=== PATIENT | male | born 2000 | race Caucasian/White ===

== ENCOUNTER 2022-12-05 21:34 | Emergency (ER) | payer BC, SELFPAY ==
[2022-12-05 21:43] VITALS: BP 114/84; PULSE 77; RESP 16; TEMP 36.4; O2SAT 98; BMI 31.3
--- NOTE | 2022-12-05 21:59 | ED_ITS ---
HPI - Extremity Injury (Lower) General Time Seen by Provider: 21:59 Date Seen: 12/05/22 Chief Complaint: Extremity Pain/Injury, Lower Stated Complaint: L Knee injury Time Seen by Provider: 12/05/22 21:59 Source: patient and RN notes reviewed Mode of arrival: ambulatory Limitations: no limitations History of Present Illness HPI Narrative: Patient is a 22-year-old male coming in with complaint of left knee pain. He injured it in hockey. Thinks he had it hit by another player bending it, thought he heard a pop. He thinks that maybe the knee cap was out and he put it back in. He has pain medially along the knee. He states he has had meniscus injury in this knee before. They have crutches in the car. It hurts to been, hurts to walk. MD complaint: knee injury Related Data Home Medications Medication Instructions Recorded Confirmed No Known Home Medications 12/05/22 12/05/22 Allergies Allergy/AdvReac Type Severity Reaction Status Date / Time No Known Drug Allergies Allergy Verified 12/05/22 21:43 Review of Systems Narrative: As per HPI. PFSH PFSH Social History Smoking Status: Never smoker Do you use any of these nicotine containing products: None Non-prescribed substance use: denies use Exam Const: Vital Signs, click to edit/add: Vital Signs - 24 hr 12/05/22 21:43 Temperature 97.6 F Pulse Rate [Pulse Oximeter] 77 Respiratory Rate 16 Blood Pressure [Ri ght Upper Arm] 114/84 Pulse Oximetry 98 Oxygen Delivery Me thod Room Air 22-year-old male is seen in exam room 6, has ice on his left medial knee. Patella seems to be intact, tracks normally. I am able to flex his knee to about 90?, I states there is a little discomfort with that. He has pain medially and seems to be in the distribution of the medial collateral ligament. I am not able to really overcome his need for testing of ACL or PCL but there is no knee joint effusion noted. He is not tender laterally, no popliteal fossa tenderness or masses. Documenting provider has reviewed patient's vital signs: yes Course Course Hospital Course: We have discussed obtaining baseline films. I am unable to MRI his knee in the ED at this time nor is it indicated emergently. We have discussed that he is painful in the distribution of the medial collateral ligament, there sometimes can be associated meniscal injuries with this pattern of injury. Without a significant joint effusion, am less concerned about any ACL or PCL injury. He may ultimately need an MRI but he will need to follow up with Orthopedics to have them ascertain if this will be indicated. We will obtain his x-ray, place him in a knee immobilizer. He does indicate that the patella may have been out of alignment, could possibly have been and associated patellar dislocation that is relocated at this time. They have crutches for weight-bearing with the knee immobilizer on. Reevaluation(s) Time of Reevaluation #1: 23:06 Reevaluation #1: Patient has is knee immobilizer on, unfortunately radiology still has not read his films. I reviewed with him that I do not see any acute pathology and would contact him if there was anything differing from my initial reading. He was comfortable with that plan, did not want to wait any longer. He will still need to follow up with Orthopedics. Time of Reevaluation #2: 23:51 Reevaluation #2: Did call patient back and let him know that the radiologist was questioning a cortical irregularity along the medial tibial plateau. Pain seem to be more superficial on his exam but did review with him that I need him to be nonweightbearing, keep the knee immobilizer on an use the crutches for this purpose. He will need to follow up with Orthopedics as soon as he can get in, they can decide if they are going to order CT imaging or MRI. The prudent thing his that he does not bear weight on this leg in tell it has been further evaluated by Orthopedics. He demonstrates understanding. Vital Signs Vital signs: Initial Vital Signs Temperature 97.6 F 12/05/22 21:43 Temperature Source Temporal Artery Scan 12/05/22 21:43 Pulse Rate 77 12/05/22 21:43 Respiratory Rate 16 12/05/22 21:43 Blood Pressure 114/84 12/05/22 21:43 Blood Pressure Mean 94 12/05/22 21:43 Pulse Oximetry 98 12/05/22 21:43 Oxygen Delivery Method Room Air 12/05/22 21:43 Vital Signs Temperature 97.6 F 12/05/22 21:43 Pulse Rate 77 12/05/22 21:43 Respiratory Rate 16 12/05/22 21:43 Blood Pressure 114/84 12/05/22 21:43 Pulse Oximetry 98 12/05/22 21:43 Oxygen Delivery Method Room Air 12/05/22 21:43 Temperature 97.6 F 12/05/22 21:43 Pulse Rate 77 12/05/22 21:43 Respiratory Rate 16 12/05/22 21:43 Blood Pressure 114/84 12/05/22 21:43 Pulse Oximetry 98 12/05/22 21:43 Oxygen Delivery Method Room Air 12/05/22 21:43 MDM - Extremity Injury (Lower) Imaging Data XR left knee: Attestation: I have reviewed the pertinent imaging results. My impression: No acute pathology on my preliminary review. Radiologist's impression: Patient: PARISH SAN Facility:?[facility] Patient ID:?[id number] Site Patient ID:?[id number]. Site :?[id number] Study:?XRay Knee Left 2 views-12/05/2022 10:24:21 PM Ordering Physician:Damaris Jo Final Report: Indication: Injury, pain medially. Technique: Two views of the left knee, AP, lateral. Comparison: None Findings/Impression: Slight cortical irregularity at the medial tibial plateau adjacent to the tibial spine, may be projectional. Consider further evaluation with CT. Small knee joint effusion is present. Dictated by Kita Ibrahim MD @ 12/05/2022 11:38:32 PM (Electronic Signature) Patient was notified of the radiologist's over reading as planned if there was discrepancy on my initial review. Discharge Plan Discharge Clinical Impression: Acute pain of left knee Patient Disposition: Home, Self-Care Condition: Stable Instructions: Knee Pain (ED) Additional Instructions: Use knee immobilizer for stability and crutches for pain-free weight-bearing. Ice, elevate this extremity as much as you are able to for the next few days. Tylenol and ibuprofen as needed for pain control, follow bottle directions for dosing. Contact the orthopedic office at [phone] to get scheduled for follow-up appointment and further evaluation. Activity Level: Wear Brace and Use Crutches Prescriptions: No Action No Known Home Medications Stand Alone Forms: [employer] Info Instructions
--- NOTE | 2022-12-05 22:03 | CRLHL7_ITS ---
For Patients: As a result of the Century Cures Act, medical imaging exams and procedure reports are released immediately into your electronic medical record. You may view this report before your referring provider. If you have questions, please contact your health care provider. Indication: Injury, pain medially. Technique: Two views of the left knee, AP, lateral. Comparison: None Findings/Impression: Slight cortical irregularity at the medial tibial plateau adjacent to the tibial spine, may be projectional. Consider further evaluation with CT. Small knee joint effusion is present. Dictated by Kita Ibrahim MD @ 12/05/2022 11:38:32 PM (Electronically Signed)
== END 2022-12-05 23:11 | disposition home or self-care (01) ==
PROVIDERS: Emergency Provider Family Medicine; PCP Physician Assistant Medical
DX: M25.562 Pain in left knee (principal); Y93.22 Activity, ice hockey
CPT/HCPCS: 73560; 99283

== ENCOUNTER 2023-08-08 17:02 | Day surgery (SDC) | payer BC, SELFPAY ==
[2023-08-08 17:09] VITALS: BP 160/84; PULSE 60; RESP 16; TEMP 37.8; O2SAT 97; BMI 30.4
--- NOTE | 2023-08-08 17:24 | CT_ITS ---
Patient: PARISH SAN Facility:?[facility] Patient ID:?[id number] Site Patient ID:?[id number]. Site :?[id number] Study:?CT-Abdomen/Pelvis W/98CC [id number]/2/2024 6:07:16 PM Ordering Physician:NATE Final Report: Indication: Vomiting, right lower quadrant pain Technique: CT abdomen and pelvis with intravenous contrast, 98 cc of Isovue 370. Please note that all CT scans at this facility use dose modulation, iterative reconstruction, and/or weight-based dosing when appropriate to reduce radiation dose to as low as reasonably achievable. Comparison: None. Findings: Lower chest is clear. The liver, gallbladder, spleen, adrenal glands, pancreas and kidneys are normal. Urinary bladder is grossly unremarkable. There are no pelvic cysts or masses. The appendix is dilated to 12 millimeters with associated adjacent inflammatory stranding and no free fluid or free air. Remainder of the hollow viscera is unremarkable. The abdominal aorta and mesenteric arteries are patent and normal in caliber. There is no lymphadenopathy. Bones and soft tissues are unremarkable. Impression: Acute uncomplicated appendicitis. Discussed with Dr. Sin at time of dictation. Please note that all CT scans at this facility use dose modulation, iterative reconstruction, and/or weight-based dosing when appropriate to reduce radiation dose to as low as reasonably achievable. Dictated by José Ann MD @ 08/08/2023 6:18:35 PM Signed by:?José Ann MD @08/08/2023 6:18:35 PM (Electronic Signature)
--- NOTE | 2023-08-08 17:26 | ED_ITS ---
HPI - General Adult General Date Seen: 08/08/23 Chief complaint: Abdominal Pain Stated complaint: Abdominal pain Time Seen by Provider: 08/08/23 17:18 Source: patient Mode of arrival: ambulatory Limitations: no limitations History of Present Illness HPI narrative: Patient is a 22-year-old male here with Mom for evaluation of abdominal pain and vomiting. He notes onset of abdominal pain which he says was diffuse last evening. He has had about 10 or 12 episodes of vomiting. He has had 1 episode of nonbloody diarrhea. Continues to have diffuse abdominal pain which he does not feel has changed significantly since last night. He has a low-grade fever here, has not noted fevers at home. No ill contacts. No urinary symptoms. He has a history of an umbilical hernia repair as a baby, no other surgeries. General health is good, no medical allergies. He vapes nicotine, denies drug or alcohol use. He says over the past couple of hours he has been able to keep some fluids down, had some applesauce about 30 minutes prior to coming in. Related Data Home Medications Medication Instructions Recorded Confirmed No Known Home Medications 12/05/22 08/08/23 Allergies Allergy/AdvReac Type Severity Reaction Status Date / Time mold Allergy Unknown Verified 08/08/23 18:11 Review of Systems Status of ROS: Reports: 10 or more systems reviewed and unremarkable except as noted in History and below [facility] Social History Smoking Status: Never smoker Do you use any of these nicotine containing products: None Non-prescribed substance use: denies use Exam Narrative: Exam Narrative: Vital signs as noted above. In general, an alert, well-appearing patient. Head: Normocephalic, atraumatic. Eyes: Pupils are equal reactive. Extraocular movements are full. Conjunctivae are normal. ENT: Mucous membranes are moist. Neck: Supple without lymphadenopathy. Heart: Regular rate and rhythm. No murmur or rub. Lungs: Clear bilaterally. No increased work of breathing, crackles or wheezes. Abdomen: Soft and nondistended. Focal tenderness in the right lower quadrant, no rebound guarding or rigidity. Remainder the abdomen is nontender. Bowel sounds are present. Extremities: Well perfused. No edema. No calf tenderness. Pulses intact. Neurologic: Patient is alert and oriented to person and place. Speech is fluent. Face is symmetric. Moves all extremities equally. Affect: Normal. Skin: Warm and dry. Well perfused. Const: Vital Signs, click to edit/add: Vital Signs - 24 hr 08/08/23 17:09 Temperature 100.1 F H Pulse Rate [Pulse Oximeter] 60 Respiratory Rate 16 Blood Pressure [Ri ght Upper Arm] 160/84 H Pulse Oximetry 97 Oxygen Delivery Me thod Room Air Documenting provider has reviewed patient's vital signs: yes Course Course ED Course: Patient presents with abdominal pain vomiting, did have onset of abdominal pain prior to vomiting, single episode of diarrhea. Abdominal pain is described as diffuse but tenderness is located in the right lower quadrant. I do think it would be reasonable to rule out appendicitis, he does not have significant right upper quadrant tenderness, but will check a lipase, LFTs in case of cholecystitis, biliary colic, pancreatitis. Symptoms may be vi ral/gastroenteritis. We placed an IV, hydrate, CT abdomen with contrast, labs, UA. Labs notable for an elevated white blood cell count of 16. Hemoglobin normal, platelets [id number]. Metabolic panel unremarkable. Blood sugar 118. Total bilirubin is 2, direct bilirubin is 0.2. CRP elevated at 2.1, lipase 42. Urinalysis is negative. Viral swab is negative. CT scan by my review shows a dilated appendix about 13 mm with some periappendiceal stranding. Final radiology read is of acute uncomplicated appendicitis. Patient is feeling improved. I have discussed all of this with him. Surgery w ill need to be delayed because of NPO status until tomorrow morning, Dr. Haynes plans to admit him and plans for surgery at 6:00 a.m.. Patient actually became kind of agitated with the suggestion of having to stay in hospital, his mom is with him, he was adamant that he is leaving now and not staying in the hospital. I asked him if this was related to nicotine, offered a nicotine patch. He refused a nicotine patch, asked if he could go outside and vapes I am allowing him to do that in anticipation of staying in hospital overnight. Vital Signs Vital signs: Initial Vital Signs Temperature 100.1 F H 08/08/23 17:09 Temperature Source Temporal Artery Scan 08/08/23 17:09 Pulse Rate 60 08/08/23 17:09 Respiratory Rate 16 08/08/23 17:09 Blood Pressure 160/84 H 08/08/23 17:09 Blood Pressure Mean 109 H 08/08/23 17:09 Blood Pressure Position Sitting 08/08/23 17:09 Pulse Oximetry 97 08/08/23 17:09 Oxygen Delivery Method Room Air 08/08/23 17:09 Vital Signs Temperature 100.1 F H 08/08/23 17:09 Pulse Rate 60 08/08/23 17:09 Respiratory Rate 16 08/08/23 17:09 Blood Pressure 160/84 H 08/08/23 17:09 Pulse Oximetry 97 08/08/23 17:09 Oxygen Delivery Method Room Air 08/08/23 17:09 Temperature 100.1 F H 08/08/23 17:09 Pulse Rate 60 08/08/23 17:09 Respiratory Rate 16 08/08/23 17:09 Blood Pressure 160/84 H 08/08/23 17:09 Pulse Oximetry 97 08/08/23 17:09 Oxygen Delivery Method Room Air 08/08/23 17:09 Medications Administered Medications: Discontinued Medications Generic Name Dose Route Start Last Admin Trade Name Freq PRN Reason Stop Dose Admin Sodium Chloride 1,000 mls @ 1,000 mls/hr 08/08/23 17:30 08/08/23 18:08 0.9 % Sodium Chloride 1000 Ml IV 08/08/23 18:29 1,000 mls/hr .Q1H TOMAS Administration Ketorolac Tromethamine 15 mg 08/08/23 17:24 08/08/23 18:08 Ketorolac 15 Mg/Ml Inj IVP 08/08/23 17:25 15 mg ONCE ONE Administration Ondansetron HCl 4 mg 08/08/23 17:24 08/08/23 18:09 Ondansetron 2 Mg/Ml Inj IVP 08/08/23 17:25 4 mg ONCE ONE Administration Medical Decision Making Lab Data Labs: Lab Results 08/08/23 08/08/23 08/08/23 Range/Units 17:24 17:25 17:40 WBC 16.06 H (4.50-11.00) K/uL RBC 4.82 (4.30-5.90) m/uL Hgb 15.4 (13.5-17.5) gm/dL Hct 42.3 (37.0-53.0) % MCV 88 (80-100) fL MCH 32 (26-34) pg MCHC 36 (32-36) gm/dL RDW Coeff of Abhishek 11.4 L (11.5-15.5) % Plt Count 252 (140-440) K/uL Neut % (Auto) 84.6 H (42.0-72.0) % Lymph % (Auto) 6.3 L (20-44) % [place] % (Auto) 8.0 (0.0-11.0) % Eos % (Auto) 0.0 (0.0-7.0) % Baso % (Auto) 0.1 (0.0-3.0) % Neut # (Auto) 13.60 H (1.7-7.0) K/uL Lymph # (Auto) 1.00 (0.90-2.90) K/uL [place] # (Auto) 1.30 H (0.00-0.90) K/UL Eos # (Auto) 0.00 (0.00-0.50) K/uL Baso # (Auto) 0.00 (0.00-0.30) K/uL Abs Immat Gran (auto) 0.20 (0.00-0.30) K/uL Imm/Tot Granulo (auto) 1.0 % Sodium 136 (135-149) mmol/L Potassium 4.0 (3.6-5.1) mmol/L Chloride 101 (96-114) mmol/L Carbon Dioxide 23 (20-32) mmol/L Anion Gap 12 (7-15) mEq/L BUN 11 (5-24) mg/dL Creatinine 0.9 (0.5-1.5) mg/dL Estimated Creat Clear 124.56 Estimated GFR 124 ml/min Glucose 118 H (60-115) mg/dL Calcium 9.7 (8.4-10.6) mg/dL Total Bilirubin 2.0 H (0.1-1.5) mg/dL Direct Bilirubin 0.2 (0.0-0.5) mg/dL AST 27 (12-35) U/L ALT 34 (4-50) U/L Alkaline Phosphatase 76 (40-150) U/L C-Reactive Protein 2.1 H (0.5-1.0) mg/dL Total Protein 8.3 (6.0-8.3) g/dL Albumin 4.8 (3.3-5.0) g/dL Lipase 42 (23-300) U/L Urine Color Yellow (Yellow) Urine Appearance Clear (Clear) Urine pH 6.5 (5.0-8.5) Ur Specific [place] <= 1.005 (1.000-1.030) Urine Protein Negative (Negative) Urine Glucose (UA) Negative (Negative) Urine Ketones Negative (Negative) Urine Blood Negative (Negative) Urine Nitrite Negative (Negative) Urine Bilirubin Negative (Negative) Urine Urobilinogen 0.2 (0.2-1.0) Ur Leukocyte Esterase Negative (Negative) Urine RBC 0-2 (0-2) Urine WBC 0-2 (0-5) Ur Squamous Epith Cells None (None-Few) Urine Bacteria None (None) SARS-CoV-2 (PCR) Negative SARS-CoV-2 (Negative) Influenza Type A (PCR) Negative PCR FLU A (Negative) Influenza Type B (PCR) Negative PCR FLU B (Negative) RSV (PCR) Negative PCR RSV (Negative) Discharge Plan Discharge Clinical Impression: Acute appendicitis Patient Disposition: Admitted As Observation Condition: Stable
[2023-08-08 17:52] LABS: Appearance Urine Clear (Clear); Bilirubin Urine Negative (Negative); Blood Urine Negative (Negative); Color Urine Yellow (Yellow); Glucose Urine Negative (Negative); Ketones Urine Negative (Negative); Leukocyte Esterase Urine Negative (Negative); Nitrite Urine Negative (Negative); Protein Urine Negative (Negative); Specific Gravity Urine <= 1.005 (1.000-1.030); Urobilinogen Urine 0.2 (0.2-1.0); pH Urine 6.5 (5.0-8.5)
[2023-08-08 17:55] LABS: Basophils Percent Auto 0.1 % (0.0-3.0); Hematocrit 42.3 % (37.0-53.0); Hemoglobin* 15.4 gm/dL (13.5-17.5); Lymphocytes Percent Auto 6.3 % (20-44); Mean Corpuscular HGB Conc 36 gm/dL (32-36); Mean Corpuscular Hemoglobin 32 pg (26-34); Mean Corpuscular Volume 88 fL (80-100); Neutrophils Percent Auto 84.6 % (42.0-72.0); Platelet Count* 252 K/uL (140-440); RDW Coefficient of Variation % 11.4 % (11.5-15.5); Red Blood Count 4.82 m/uL (4.30-5.90); White Blood Count* 16.06 K/uL (4.50-11.00)
[2023-08-08 18:02] LABS: Slide Review Reflex No
[2023-08-08 18:08] LABS: Chloride* 101 mmol/L (96-114)
[2023-08-08] MEDS: KETOROLAC 15 MG/ML inj IVP (18:08)
[2023-08-08] MEDS: 0.9 % SODIUM CHLORIDE 1000 ml 1,000 ML IV (18:08)
[2023-08-08 18:09] LABS: Sodium* 136 mmol/L (135-149)
[2023-08-08] MEDS: ONDANSETRON 2 MG/ML inj 4 MG IVP (18:09)
[2023-08-08 18:10] LABS: Albumin* 4.8 g/dL (3.3-5.0)
[2023-08-08 18:11] LABS: Creatinine* 0.9 mg/dL (0.5-1.5); Est. Creatinine Clearance* 124.56; Estimated Glomerular Filt Rate 124 ml/min
[2023-08-08 18:12] LABS: Anion Gap 12 mEq/L (7-15); Blood Urea Nitrogen* 11 mg/dL (5-24); Carbon Dioxide* 23 mmol/L (20-32); Glucose* 118 mg/dL (60-115)
[2023-08-08 18:13] LABS: Alanine Aminotransferase* 34 U/L (4-50); Alkaline Phosphatase* 76 U/L (40-150); Aspartate Amino Transferase* 27 U/L (12-35); Bilirubin Direct* 0.2 mg/dL (0.0-0.5); Calcium* 9.7 mg/dL (8.4-10.6); Lipase* 42 U/L (23-300); Total Protein* 8.3 g/dL (6.0-8.3)
[2023-08-08 18:15] LABS: C Reactive Protein* 2.1 mg/dL (0.5-1.0)
[2023-08-08 18:16] LABS: RBC Urine 0-2 (0-2); WBC Urine 0-2 (0-5)
[2023-08-08 18:26] LABS: PCR FLU A Negative PCR FLU A (Negative); PCR FLU B Negative PCR FLU B (Negative); PCR RSV Negative PCR RSV (Negative); SARS PCR* Negative SARS-CoV-2 (Negative)
--- NOTE | 2023-08-08 18:33 | PM.EN ---
Chart Event Note Chart Event Note: Patient with history and imaging consistent with acute appendicitis. Last ate some applesauce about 2 hours prior. Spoke with anesthesia who is recommending at least 6 hours NPO to decrease risk of aspiration. Will admit patient to med/surg and plan to go to the OR for lap appy 08/09/2023 at 0600.
[2023-08-08 19:27] VITALS: BP 139/78; PULSE 78; RESP 16; TEMP 36.2; O2SAT 96
[2023-08-08] MEDS: PIPERACILLIN/TAZOBACTAM 3.375 GM in 0.9 % SODIUM CHLORIDE Mini-bag 100 ML IVPB (20:43)
[2023-08-08] MEDS: 0.9 % SODIUM CHLORIDE 1000 ml 1,000 ML 125 ML IV (20:44)
[2023-08-09 02:37] VITALS: BP 139/78; PULSE 78; RESP 16; TEMP 36.2; O2SAT 96
[2023-08-09] MEDS: PIPERACILLIN/TAZOBACTAM 3.375 GM in 0.9 % SODIUM CHLORIDE Mini-bag 100 ML IVPB (03:41)
[2023-08-09 03:46] VITALS: BP 130/80; PULSE 80; RESP 16; TEMP 36.7; O2SAT 96
--- NOTE | 2023-08-09 06:03 | P.GSHP_ITS ---
History of Present Illness History of Present Illness Date Seen: 08/09/23 Chief complaint: Abdominal pain Narrative: Marcus Olivia is a 22 year old male who presented to the emergency department for abdominal pain and vomiting. He states that the pain started 1 day ago. It was initially diffuse and associated with a lot of nausea and vomiting. He also had 1 episode of diarrhea. Yesterday the pain continued to be diffuse but then started to migrate to the right lower quadrant. Denies any fevers at home, he did have a low-grade fever in the emergency department. He has never had pain like this before. His surgical history is positive for an umbilical hernia repair as a baby. Review of Systems Status of ROS: Reports: 10 or more systems reviewed and unremarkable except as noted in History and below PFSH PFSH Social History What is your current living situation?: I presently have a place to live Problems where you live: no known problems In the past 12 months, utilities in danger of being shut off: no In past 12 months, lack of transportation kept you from medical appts, meetings, work, or getting things needed for daily living: no In the past 12 mos, have been you worried that your food would run out before you had money to buy more?: never true In the past 12 mos, the food you bought just didn't last and you didn't have money to buy more?: never true Highest level of school completed/degree received: high school graduate Smoking Status: Never smoker Do you use any of these nicotine containing products: Vaping Products How often do you have a drink containing alcohol: never AUDIT-C Alcohol total score: 0 Non-prescribed substance use: denies use Caffeine: Yes (occ) How often does anyone, including family, friends and others, physically hurt you : never How often does anyone, including family, friends and others, insult or talk down to you: never How often does anyone, including family, friends and others, threaten you with harm: never How often does anyone, including family, friends and others, scream or curse at you: never service: No Meds Home Medications and Allergies Home Medications Medication Instructions Recorded Confirmed Type No Known Home Medications 12/05/22 08/08/23 History Allergies Allergy/AdvReac Type Severity Reaction Status Date / Time mold Allergy Unknown Verified 08/08/23 18:11 Exam Narrative: Exam Narrative: General: Alert and oriented, no acute distress Respiratory: Equal breath rise bilaterally, maintained on room air CV: Well perfused Abdomen: Soft, tender to palpation right lower quadrant with some guarding. Const: Vital Signs, click to edit/add: Vital Signs - 24 hr 08/08/23 17:09 08/08/23 19:27 08/09/23 02:37 Temperature 100.1 F H 97.1 F L 97.1 F L Pulse Rate [Pulse Oximeter] 60 78 78 Respiratory Rate 16 16 16 Blood Pressure [Ri ght Arm] 139/78 139/78 Blood Pressure [Ri ght Upper Arm] 160/84 H Pulse Oximetry 97 96 96 Oxygen Delivery Me thod Room Air Room Air Room Air 08/09/23 03:46 Temperature 98.1 F Pulse Rate [Pulse Oximeter] 80 Respiratory Rate 16 Blood Pressure [Ri ght Arm] 130/80 Blood Pressure [Ri ght Upper Arm] Pulse Oximetry 96 Oxygen Delivery Me thod Room Air Results Results Labs: Leukocytosis (16), increased indirect bilirubin (2.0) this likely is associated with hemo lysis and his recent vomiting. Elevated CRP (2.1) Abdomen CT scan report/results: report reviewed and image reviewed Progress Note:A&P Assessment and plan (1) Acute appendicitis: Status: Acute Assessment and Plan: The patient presented with a history, exam and imaging findings consistent with acute appendicitis. I discussed the treatment options with the patient including non-surgical and surgical options. I recommended laparoscopic appendectomy. The risks of surgery were reviewed with the patient including the risks of bleeding, post-operative wound or intra-abdominal infection, injury to abdominal structures and possible conversion to an open operation. We also discussed anesthetic complications including OH, stroke, respiratory failure and blood clots. The patient voiced an understanding of our conversation, had the opportunity to ask questions, agreed to accept the risks of surgery and asked that we proceed with surgery. -OR for laparoscopic appendectomy
--- NOTE | 2023-08-09 07:35 | PM.GSPRC ---
Operative Note Date of procedure: 08/09/23 Pre-op diagnosis: Acute appendicitis Post-op diagnosis: Same Type of Procedure: Laparoscopic appendectomy Indications: Patient is a 22-year-old male who presented to the emergency department with clinical workup in imaging confirming acute, uncomplicated appendicitis. Risks and benefits of operative intervention were discussed at length with the patient. Risks included but was not limited to: Bleeding, infection, risk of damage to surrounding structures, possible need for additional procedures, possible need to convert to an open operation and postoperative complications such as pneumonia, pulmonary emboli or VA. All questions and concerns were addressed with the patient agreeing to proceed. Procedure Description: After discussing the risks and benefits of the procedure, the patient signed informed consent.? The operative site was marked and the patient was brought to the operating room and placed on the operating table in supine position.? Care was taken to pad the patient's pressure points.?? The patient was then intubated by anesthesia.?? The operative site was then prepped and draped in the usual sterile fashion.? A time-out was then performed. Entrance to the abdomen was obtained via a 5 mm optical trocar in the left upper quadrant. The abdomen was insufflated and briefly surveyed for any signs of injury. There were none. A 12 mm port was placed at the umbilicus as well as a 5 mm port in the left lower quadrant under direct vision. The patient was then placed in Trendelenburg position with the right side up. The small bowel was adherent to the base of the appendix, but bluntly dissected free and gently moved out of the way and the appendix was in view. A small amount of dissection was necessary to free the appendix from the surrounding pelvic attachments. This was grasped and pulled into view. A mesenteric window was created between the base of the appendix and the mesoappendix. A 30 mm Endo-TIFFANIE purple load stapler was then used to transect the appendix at its base. The staple line was inspected and there was concern for miss fire with incomplete closure of the 2nd layer of yovana. No spillage was evident. A decision was made to take an additional cuff of cecum. A 45 mm bowel load was used to take the previous staple line and transect a portion of cecum. Care was taken not to impinge upon the ileocecal valve. The staple line was inspected, appeared complete and intact. Two small areas of pinpoint bleeding were identified and controlled with 5 mm clips. A 45 mm vascular load stapler was then used to take the mesoappendix. The staple lines were inspected for bleeding. Again a small area of pinpoint bleeding was identified with two 5 mm clips applied. Hemostasis was then excellent. The appendix and cecal cuff was then removed from the abdomen using an Endo-Catch bag. The specimen was sent to pathology. The 12 mm port site fascia was closed with 0 Vicryl. All other ports removed under direct visualization. The skin was then closed with absorbable subcuticular suture. Sterile dressings were then applied. Instrument sponge and needle counts were correct at the end of the case. The patient was then woken and transported to the PACU in stable condition. Findings: Acute appendicitis, non perforated Anesthesia: GETA Surgeon: Lola Haynes MD Estimated blood loss (mL): 10 Specimen: Appendix Condition: stable Disposition: PACU
[2023-08-09] MEDS: MEPERIDINE 25 MG/ML INJ 12.5 MG IVP (07:45)
[2023-08-09] MEDS: BUPIVACAINE 0.25% 30 ML 20 ML INJECTION (07:49)
--- NOTE | 2023-08-09 07:54 | PC.NURSE ---
Pt with minimal pain over night. NPO after midnight for surgery today. Up Independantly in room. VSS. Went to surgery at 0600.
[2023-08-09 08:14] VITALS: BP 150/95; PULSE 74; RESP 16; TEMP 36.6; O2SAT 95
[2023-08-09 08:26] VITALS: BP 159/107; PULSE 67; RESP 16; O2SAT 95
[2023-08-09 08:30] VITALS: BP 156/100; PULSE 67; RESP 16; O2SAT 95
--- NOTE | 2023-08-09 13:04 | W.ANESCHARGE ---
Anesthesia Charges Start Date/Time Anesthesia Start Date: 08/09/23 Anesthesia Start Time: 06:01 Stop Date/Time Anesthesia Stop Date: 08/09/23 Anesthesia Stop Time: 07:49
== END 2023-08-09 08:45 | disposition home or self-care (01) ==
LOC: ED 18:46 → SS 18:53 → MEDSURG 19:51 → SS 08-09 08:32
PROVIDERS: Emergency Provider Emergency Medicine; PCP Physician Assistant Medical; Visit Provider Surgery
PROC: 0DTJ4ZZ Resection of Appendix, Percutaneous Endoscopic Approach (ICD-10-PCS; CPT 44970; principal; 2023-08-09 06:00)
DX: K35.80 Unspecified acute appendicitis (principal)
CPT/HCPCS: 44970; 00840; 36415; 74177; 80048; 80076; 81001; 83690; 85025; 86140; 87631; 88304; 99284; 99285; G0378; J0665; J1885; J2175; J2405; J2543; J7030; J7120; Q9967

== ENCOUNTER 2025-04-29 12:20 | Outpatient (CLI) | payer BC, SELFPAY ==
[2025-04-29 12:59] LABS: PCR FLU A POSITIVE PCR FLU A (Negative); PCR FLU B Negative PCR FLU B (Negative); SARS PCR* Negative SARS-CoV-2 (Negative)
== END 2025-04-29 12:21 | disposition home or self-care (01) ==
LOC: FRMREF 12:20
PROVIDERS: Visit Provider Physician Assistant Medical
DX: R50.9 Fever, unspecified (principal); J02.9 Acute pharyngitis, unspecified
CPT/HCPCS: 87636